=== PATIENT | female | born 1970 ===

== ENCOUNTER 2023-07-17 11:00 | Outpatient (RCR) | payer BC, SELFPAY ==
--- NOTE | 2023-06-15 13:27 | OTOPEVAL1 ---
Assessment and note entered by LOLA Fan/Jazmine, CHT Evaluation Information 06/15/23 Diagnosis CVA Onset ~3 weeks ago Subjective Information Kassidy presents today with her daughter. She reports she was in the hospital a few days and discharged home. Daughters have been helping with household tasks. She reports she has returned to being independent with bathing and dressing. She has right sided weakness and is right handed. Reports anything I use my right hand for is difficult - writing, eating, brushing teeth, etc. Reported Pain Level Pain Score 0: Self Report Assessment OT Clinical Summary Patient referred to OT s/p acute CVA affecting her right side. She presents with right sided weakness and incoordination that affects her ability to complete household tasks, lifting, and fine motor tasks at her prior level of function. Skilled OT indicated to maximize functional right UE use, strength, and coordination. Plan of Care Interventions Therapeutic Exercise,Neuro Re-education OT Services Indicated Yes Treatment Frequency and 2x/week for 8 visits Duration These treatments will address the objective and functional deficits as defined above. The patient will be advanced safely and appropriately in order for the patient to progress towards his/her prior level of function. Additional exercises will be introduced and as well as a comprehensive home exercise program upon discharge, if needed, ?to ensure carryover of functional gains achieved in the clinic. This treatment plan has been reviewed and agreement upon by the patient.
--- NOTE | 2023-06-15 14:54 | OPREHPOC ---
Outpatient Therapy Plan of Care This is a Multidisciplinary Plan of Care that may contain components documented by all disciplines (PT, OT, and ST.) PT Problem 1 PT Problem #1 Knowledge Deficit PT Goal 1 Goal 1* indep with HEP PT Problem 2 PT Problem #2 Impaired Strength PT Goal 1 Goal increase LE strength to improve walking and mobility skills: 1* pt perform 20 reps of mat exercises R and L LE 2* single leg standing R 10 seconds 3* single leg stnading L 10 seconds PT Problem 3 PT Problem #3 Impaired Functional Mobil PT Goal 1 Goal 1* Mariano balance score of 56/56 2* 2 minute walking test distance of 475' 3* up/donw 4 steps without hand railing 4* pt report no falls 5* pt transfer sit/floor with use of UE on mat, modified indep OT Problem 1 OT Problem #1 Knowledge Deficit OT Goal 1 Goal 1. Patient to be independent with instructed materials. Target Visit 9 OT Problem 2 OT Problem #2 Impaired Coordination OT Goal 1 Goal 1. Be able to complete the 9-hole peg test with the right hand in 25 sec Target Visit 9 OT Problem 3 OT Problem #3 Impaired Strength OT Goal 1 Goal 1. Increase (R) document coordinator strength to 60 lbs.
--- NOTE | 2023-06-15 14:54 | PTOPEVAL1 ---
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 She has not had any therapy since leaving the hospital. Prior to CVA, she was indep, active and worked night time nanny. Her family is assisting with all home tasks, transportation and shopping. She has not been doing any leg exercises at home. Daughter Yolanda present during eval and reports pt has been started on some depression meds. With the evaluation: 5 reps sit/stand time of 17 sec with decreased control of motion with transfer ; 2 minute walking test distance of 400'; Mariano balance score of 49/56; on stairs required one hand railing and single step pattern; decreased trunk and LE strength. Skilled PT services are indicated for therapeutic exercises and activities to increase LE strength, gait and balance skills, to return to prior level of indep living and activity. Education for home exercise program and safety with mobility. Plan of Care Interventions Gait Training,Neuro Re-education,Patient/Caregiver Ed
--- NOTE | 2023-06-21 08:48 | PCPTNOTE ---
Patient called to cancel appointment due to transportation issues.
--- NOTE | 2023-07-12 10:30 | PCPTNOTE ---
Patient cancelled secondary to scheduling issues.
--- NOTE | 2023-07-17 10:50 | PTOPDC ---
Assessment and note entered by Cammie Isabel, PT Discharge Information Assessment Status Discharge Diagnosis s/p CVA Onset 05-18-23 Subjective Information family help with heavier home tasks; driving short distances in town, not on the highway; saw last week- said everything was OK, return to work was up to her, but issues with disability and not sure about employer letting her return; is doing all home, except heavy tasks and self care tasks, out in public, doing shopping; have not had any falls; with home activity- about 20-25 minutes, then have to sit and rest due to back pain; Reported Pain Level Pain Score 0: Self Report, with activity, pain in back Assessment PT Clinical Summary Kassidy has received 6 PT sessions. She reports she has returned to driving short, local distances and activity with in home activity about 20-25 minutes, then have to rest. Compared to initial evaluation: increase strength of R and L LE and trunk; Mariano balance score improved from 49 to 55/56; 2 minute walking test distance from 400' to 460'; able to transfer standing/floor indep with use of UE's on mat; 4 steps without hand railing and single step pattern education completed for HEP and safety with mobility. The goals were partially met. Discharge from PT services. She is to continue with her HEP. Plan of Care PT Services Indicated No
--- NOTE | 2023-07-17 11:16 | OTOPDC ---
Assessment and note entered by Satnam Newman, OTR/L, CHT Discharge Summary Diagnosis CVA Subjective Information Kassidy presents today stating her right hand is doing better. Reports no difficulties with feeding herself, brushing her teeth, or writing. She is functioning independently at home. Reports she is unsure if she's going back to work. Assessment OT Clinical Summary Patient referred to OT s/p acute CVA affecting her right side. She presents today with improvements in gross strength and 9-hole peg test sore is now WNL. She reports no functional deficits at this time. D/C today with patient independent with HEP. Plan of Care OT Services Indicated No
== END 2023-07-17 12:45 | disposition home or self-care (01) ==
LOC: ANHOT 11:00
DX: I63.9 Cerebral infarction, unspecified (principal)
CPT/HCPCS: 97110; 97112; 97161; 97165; 97530